=== PATIENT | male | born 1990 | race Asian ===

== ENCOUNTER 2016-12-06 15:29 | Emergency (ER) | payer OTHER ==
[~2016-12-06] VITALS: Ht 165.1 cm; Wt 72.6 kg
[2016-12-06 15:35] VITALS: TEMP 97.9
[2016-12-06 16:23] LABS: PLATELET COUNT 254 K/uL (142-355)
[2016-12-06 16:28] LABS: POTASSIUM 3.7 mmol/L (3.6-5.2); SODIUM 134 mmol/L (136-145)
[2016-12-06 17:47] VITALS: BP 145/82
== END 2016-12-06 18:08 | disposition home or self-care (01) ==
LOC: ED 15:29
PROVIDERS: Specialist
DX: R10.32 Left lower quadrant pain (principal); R11.10 Vomiting, unspecified
CPT/HCPCS: 36416; 36591; 80053; 82150; 83690; 85027; 96374; 96375; 99284; J2270; J2405; J2550; J3490

== ENCOUNTER 2016-12-09 14:01 | Emergency (ER) | payer OTHER ==
[~2016-12-09] VITALS: Ht 165.1 cm; Wt 72.6 kg
[2016-12-09 14:00] VITALS: BP 138/88; TEMP 97.4
[2016-12-09 14:51] LABS: PLATELET COUNT 297 K/uL (142-355)
[2016-12-09 14:56] LABS: POTASSIUM 3.6 mmol/L (3.6-5.2); SODIUM 136 mmol/L (136-145)
== END 2016-12-09 16:03 | disposition home or self-care (01) ==
LOC: ED 14:01
PROVIDERS: Emergency Medicine
DX: R07.89 Other chest pain (principal); F19.10 Other psychoactive substance abuse, uncomplicated
CPT/HCPCS: 36415; 80053; 80307; 82550; 84484; 85027; 93005; 99283; G0479

== ENCOUNTER 2018-01-06 11:08 | Observation (INO) | payer OTHER ==
[2018-01-06] VITALS (14 sets, daily range): BP systolic 140–167; BP diastolic 66–97; TEMP 97.6–98.3; Ht 165.1 cm; Wt 79.9 kg
[~2018-01-06] VITALS: Ht 165.1 cm; Wt 79.9 kg
[2018-01-06 12:06] LABS: PLATELET COUNT 234 K/uL (142-355)
[2018-01-06 12:08] LABS: POTASSIUM 3.9 mmol/L (3.6-5.2)
[2018-01-06 12:22] LABS: PARTIAL THROMBOPLASTIN TIME 23.7 SECONDS (24.5-33.6)
[2018-01-07] VITALS: BP 148/82; TEMP 98.5
[2018-01-07 04:00] VITALS: BP 152/78; TEMP 98.3
[2018-01-07 04:31] LABS: PLATELET COUNT 217 K/uL (142-355)
[2018-01-07 04:54] LABS: POTASSIUM 3.7 mmol/L (3.6-5.2)
[2018-01-07 08:00] VITALS: BP 131/82; TEMP 98
[2018-01-07 12:00] VITALS: BP 137/91; TEMP 98.3
[2018-01-07 15:51] VITALS: BP 143/85; TEMP 98.3
[2018-01-07 20:00] VITALS: BP 158/86; TEMP 98.5
[2018-01-08] VITALS: BP 154/91; TEMP 97.6
[2018-01-08 04:00] VITALS: BP 167/92; TEMP 97.5
[2018-01-08 05:14] LABS: PLATELET COUNT 198 K/uL (142-355)
[2018-01-08 05:36] LABS: POTASSIUM 3.6 mmol/L (3.6-5.2)
[2018-01-08 08:00] VITALS: BP 167/92; TEMP 97.5
[2018-01-08 12:00] VITALS: BP 140/80; TEMP 97.8
== END 2018-01-08 15:45 | disposition home or self-care (01) ==
LOC: ED 11:08 → MED/SURG 14:45
PROVIDERS: ADMIT Emergency Medicine
DX: R07.89 Other chest pain (principal); F14.23 Cocaine dependence with withdrawal; F12.288 Cannabis dependence with other cannabis-induced disorder; R11.2 Nausea with vomiting, unspecified; R10.9 Unspecified abdominal pain; R79.89 Other specified abnormal findings of blood chemistry
CPT/HCPCS: 36415; 80053; 80307; 81000; 82550; 84484; 85027; 85610; 85730; 93005; 96365; 96366; 96374; 96376; 99220; 99284; G0378; J1885; J2405; J3490

== ENCOUNTER 2019-04-09 16:45 | Observation (INO) | payer OTHER ==
[~2019-04-09] VITALS: Ht 165.1 cm; Wt 78.2 kg
[2019-04-09] VITALS (7 sets, daily range): BP systolic 143–196; BP diastolic 96–116; TEMP 97.3–98.2; Ht 165.1 cm; Wt 78.2 kg
[2019-04-09 17:10] LABS: PLATELET COUNT 294 K/uL (142-355)
[2019-04-09 17:18] LABS: POTASSIUM 2.7 mmol/L (3.6-5.2); SODIUM 133 mmol/L (136-145)
[2019-04-10] VITALS: BP 196/116; TEMP 97.9
[2019-04-10 03:54] VITALS: BP 162/95; TEMP 98.4
[2019-04-10 08:00] VITALS: BP 150/75; TEMP 98.5
[2019-04-10] MEDS ORDERED: AMLODIPINE BESYLATE PO (10:26)
[2019-04-10 12:00] VITALS: BP 134/84; TEMP 97.9
== END 2019-04-10 12:20 | disposition home or self-care (01) ==
LOC: ED 16:45 → MED/SURG 17:45
PROVIDERS: ADMIT Emergency Medicine
DX: R07.89 Other chest pain (principal); E87.6 Hypokalemia; I10 Essential (primary) hypertension; F14.10 Cocaine abuse, uncomplicated; F15.10 Other stimulant abuse, uncomplicated; F12.10 Cannabis abuse, uncomplicated
CPT/HCPCS: 36415; 80053; 80307; 82550; 83690; 83880; 84484; 85027; 93005; 96360; 96366; 96372; 96374; 96375; 99220; 99284; G0378; J0360; J1650; J3490

== ENCOUNTER 2019-09-25 13:08 | Outpatient (CLI) | payer OTHER ==
[~2019-09-25 13:08] MED LIST: AMLODIPINE BESYLATE PO
== END 2019-09-25 13:12 | disposition short-term general hospital (02) ==
LOC: AMB 13:08
DX: R07.9 Chest pain, unspecified (principal)
CPT/HCPCS: A0425; A0427

== ENCOUNTER 2019-09-25 13:15 | Emergency (ER) | payer OTHER ==
[~2019-09-25] VITALS: Ht 165.1 cm; Wt 78.0 kg
[2019-09-25 13:20] VITALS: BP 131/88; TEMP 97.5
[2019-09-25 13:56] LABS: PLATELET COUNT 273 K/uL (142-355)
[2019-09-25 14:03] LABS: POTASSIUM 4.5 mmol/L (3.6-5.2); SODIUM 139 mmol/L (136-145)
== END 2019-09-25 15:35 | disposition home or self-care (01) ==
LOC: ED 13:15
PROVIDERS: Family Medicine
DX: R07.89 Other chest pain (principal)
CPT/HCPCS: 80053; 80307; 81000; 82550; 84484; 85027; 85379; 93005; 99284; J2405

== ENCOUNTER 2019-09-28 12:01 | Emergency (ER) | payer OTHER ==
[~2019-09-28] VITALS: Ht 165.1 cm; Wt 81.6 kg
[2019-09-28 12:10] VITALS: TEMP 98.1
[2019-09-28 13:10] LABS: PLATELET COUNT 274 K/uL (142-355)
[2019-09-28 13:16] LABS: POTASSIUM 3.2 mmol/L (3.6-5.2); SODIUM 131 mmol/L (136-145)
[2019-09-28 15:11] VITALS: BP 169/105
== END 2019-09-28 15:11 | disposition home or self-care (01) ==
LOC: ED 12:01
PROVIDERS: Family Medicine
DX: R07.89 Other chest pain (principal); E87.6 Hypokalemia; E87.1 Hypo-osmolality and hyponatremia; R11.0 Nausea; R00.0 Tachycardia, unspecified
CPT/HCPCS: 80053; 80307; 81000; 82550; 84484; 85027; 93005; 99283